=== PATIENT | female | born 1950 | race Caucasian/White ===

== ENCOUNTER 2024-12-30 06:40 | Day surgery (SDC) | payer MEDICARE ==
[2024-12-30] MEDS ORDERED: Dexamethasone 4 MG/ML SDV IV ONE (06:41)
[2024-12-30] MEDS ORDERED: Sodium Chloride 0.9% 10 ML Syringe IV ONE (06:41)
[2024-12-30] MEDS ORDERED: Midazolam 1 MG/ML 2 ML SDV IV ONE (06:41)
[2024-12-30] MEDS: Sodium Chloride 0.9% 10 ML Syringe FLUSH PRN (08:12)
[2024-12-30] MEDS: Proparacaine 0.5% Ophth Soln 15 ML Bottle EYERT ONE ×2 (08:13→10:17)
[2024-12-30] MEDS: Moxifloxacin 0.5% Ophth Soln 3 ML Bottle EYERT ONE (08:13)
[2024-12-30] MEDS: Phenylephrine 10% Ophth Soln 5 ML Bot EYERT ONE (08:14)
[2024-12-30] MEDS: Povidone-Iodine 5% Sterile Ophth Soln 30 ML Bottle EYERT ONE ×2 (08:15→10:17)
[2024-12-30] MEDS: Timolol Maleate 0.5% Ophth Soln 5 ML Bottle EYERT ONE (08:16)
[2024-12-30] MEDS: Cataract Ophth Solution EYERT ONE (08:16)
[2024-12-30] MEDS: Tropicamide 1% Ophth Soln 15 ML Bottle EYERT ONE (08:16)
[2024-12-30] MEDS ORDERED: Acetaminophen 325 MG Tab PO PRN (08:30)
[2024-12-30] MEDS ORDERED: VANCOmycin 500 MG SDV EYERT ONE (08:30)
[2024-12-30] MEDS ORDERED: Acetaminophen/Codeine 300-30 MG Tab PO PRN (08:30)
[2024-12-30] MEDS ORDERED: Ondansetron 4 MG/2 ML SDV IVPUSH PRN (08:30)
[2024-12-30] MEDS ORDERED: Lidocaine 1% 30 ML SDV INJECT ONE (08:30)
[2024-12-30] MEDS: Apraclonidine 0.5% Ophth Soln 5 ML Bot EYERT ONE (10:18)
[2024-12-30] MEDS: Tobramycin 0.3% Ophth Oint 3.5 GM Tube EYERT ONE (10:19)
[2024-12-30] MEDS: VANCOmycin 500 MG SDV EYERT ONE (10:20)
[2024-12-30] MEDS: Lidocaine 1% 30 ML SDV INJECT ONE (10:20)
== END 2024-12-30 10:52 | disposition home or self-care (01) ==
LOC: DL.SDS 06:40
PROVIDERS: ATTEND Ophthalmology
DX: H25.811 Combined forms of age-related cataract, right eye (principal); I25.10 Atherosclerotic heart disease of native coronary artery without angina pectoris; K21.9 Gastro-esophageal reflux disease without esophagitis; Z88.8 Allergy status to other drugs, medicaments and biological substances; Z88.2 Allergy status to sulfonamides; Z79.82 Long term (current) use of aspirin; Z79.899 Other long term (current) drug therapy
CPT/HCPCS: 66984; A9270; J2003; J3370; 00142; 99100; J1100; J2250; J3490; V2632

== ENCOUNTER 2025-01-13 06:12 | Day surgery (SDC) | payer MEDICARE ==
[2025-01-13] MEDS ORDERED: Dexamethasone 4 MG/ML SDV IV ONE (06:13)
[2025-01-13] MEDS ORDERED: Midazolam 1 MG/ML 2 ML SDV IV ONE (06:13)
[2025-01-13] MEDS ORDERED: Sodium Chloride 0.9% 10 ML Syringe IV ONE (06:13)
[2025-01-13] MEDS ORDERED: Proparacaine 0.5% Ophth Soln 15 ML Bottle ONE (06:43)
[2025-01-13] MEDS: Proparacaine 0.5% Ophth Soln 15 ML Bottle EYELF ONE ×2 (06:51→07:57)
[2025-01-13] MEDS: Moxifloxacin 0.5% Ophth Soln 3 ML Bottle EYELF ONE (06:52)
[2025-01-13] MEDS: Povidone-Iodine 5% Sterile Ophth Soln 30 ML Bottle EYELF ONE ×2 (06:54→07:58)
[2025-01-13] MEDS: Phenylephrine 10% Ophth Soln 5 ML Bot EYELF PRN (06:55)
[2025-01-13] MEDS: Tropicamide 1% Ophth Soln 15 ML Bottle EYELF ONE (06:56)
[2025-01-13] MEDS: Timolol Maleate 0.5% Ophth Soln 5 ML Bottle EYELF ONE (06:56)
[2025-01-13] MEDS: Cataract Ophth Solution EYELF ONE (06:58)
[2025-01-13] MEDS ORDERED: Lidocaine 1% 30 ML SDV INJECT ONE (07:45)
[2025-01-13] MEDS ORDERED: VANCOmycin 500 MG SDV EYELF ONE (07:45)
[2025-01-13] MEDS ORDERED: Acetaminophen/Codeine 300-30 MG Tab PO PRN (07:45)
[2025-01-13] MEDS ORDERED: Ondansetron 4 MG/2 ML SDV IVPUSH PRN (07:45)
[2025-01-13] MEDS: Apraclonidine 0.5% Ophth Soln 5 ML Bot EYELF ONE (07:58)
[2025-01-13] MEDS: Dexamethasone/Neomycin/Polymyxin B Ophth Oint 3.5 GM Tube EYELF ONE (07:59)
[2025-01-13] MEDS: Diclofenac Sodium 0.1% Ophth Soln 5 ML Bottle EYELF ONE (07:59)
[2025-01-13] MEDS: Lidocaine 1% 30 ML SDV ONE (08:00)
[2025-01-13] MEDS: VANCOmycin 500 MG SDV EYELF ONE (08:00)
[2025-01-13] MEDS: hydrALAZINE 20 MG/ML SDV IVPUSH ONE (08:33)
[2025-01-13] MEDS: hydrALAZINE 20 MG/ML SDV ONE (08:38)
[2025-01-13] MEDS: Acetaminophen 325 MG Tab PO PRN (09:16)
== END 2025-01-13 09:25 | disposition home or self-care (01) ==
LOC: DL.SDS 06:12
PROVIDERS: ATTEND Ophthalmology
DX: H25.812 Combined forms of age-related cataract, left eye (principal)
CPT/HCPCS: 66984; A9270; J0360; J2003; J3370; J1100; J2250; J3490